=== PATIENT | male | born 1985 | race Caucasian/White ===

== ENCOUNTER 2016-12-06 16:54 | Emergency (ER) | payer OTHER ==
[~2016-12-06 16:54] MED LIST: IBUPROFEN200 M1 PO; NICOTINE T21 MG/24 H TOP; OXYCODONE/ACETA1 TA1 PO
--- NOTE | 2016-12-06 21:07 | ED ORDER SUMMARY ---
..... Patient: ANN-MARIE MUIR OrderSheet [facility] VisitID: [id number] [place] [address] 31y, M Registration Date/Time: 12/06/2016 ORDER SHEET Weight: 81.6 kg Allergies: None GENERAL ORDERS: Cervical Spine 2 or 3V Urgent (19:59 12/06/2016 Leah Patel) (Ack 20:00 TBergley) (20:24 MCampbell) MEDICATION ORDERS: Toradol IM 60 mg (NOW) (19:29 12/06/2016 Leah Patel) (19:34 DBeyalexandru R.N.) Diazepam IM 5 mg (HIGH ALERT MEDICATION, NOW) (19:29 12/06/2016 Leah Patel) (19:36 DBanjel R.N.) IV FLUIDS: ORDER SHEET NOTES: [Electronically signed by Sae Raphael R.N. (03:40 12/07/2016)] [Electronically signed by Suresh Vasquez Dr. (08:56 12/09/2016)] [Electronically locked/signed by Sae Raphael R.N. (03:40 12/07/2016)]
--- NOTE | 2016-12-06 21:07 | ED ORDER SUMMARY ---
..... Patient: ANN-MARIE MUIR OrderSheet [facility] VisitID: [id number] [place] [address] 31y, M Registration Date/Time: 12/06/2016 ORDER SHEET Weight: 81.6 kg Allergies: None GENERAL ORDERS: Cervical Spine 2 or 3V Urgent (19:59 12/06/2016 Leah Patel) (Ack 20:00 TBergley) (20:24 MCampbell) MEDICATION ORDERS: Toradol IM 60 mg (NOW) (19:29 12/06/2016 Leah Patel) (19:34 DBeyalexandru R.N.) Diazepam IM 5 mg (HIGH ALERT MEDICATION, NOW) (19:29 12/06/2016 Leah Patel) (19:36 DBanjel R.N.) IV FLUIDS: ORDER SHEET NOTES: [Electronically signed by Sae Raphael R.N. (03:40 12/07/2016)] [Electronically signed by Suresh Vasquez Dr. (08:56 12/09/2016)] [Electronically locked/signed by Sae Raphael R.N. (03:40 12/07/2016)]
--- NOTE | 2016-12-06 21:07 | ED NURSING NOTES ---
Clinical Report - Nurses [facility] [place] [address] 12/06/2016 16:57 [id number] TRI[facility] Triage time 19:09. Acuity: LEVEL 3. Chief Complaint: NECK PAIN. 19:12 12/06/16. Alert. No acute distress. [place] COMA SCORE: [place] Coma Scale: 15- eyes open spontaneously (4); best verbal response- oriented x 4 (5); best motor response- obeys commands (6). --19:13 Rakan Driver R.N. 19:09 12/06/16. BP: 174/102. HR: 76. RR: 16. O2 saturation: 100% on room air. Temp: 98.1 F (oral). Pain level now 09/03. --19:13 Rakan Driver R.N. Weight: 81.6 kg. Height/Length: 71 inches. BMI: 25.1. --19:11 Rakan Driver R.N. Medications Ibuprofen Oral. --19:12 Rakan Driver R.N. Allergies None. --19:12 Raakn Driver R.N. Medication/allergy information source: the patient. --19:13 Rakan Driver R.N. History Primary physician (lola). ( states hx of arthritis, woke up this morning and couldn't turn neck. States he hasn't been able to see fire fighter yet). This started today. No history of recent trauma. Treatment MANUFACTURING CLERK: None. SOCIAL HX: Heavy tobacco smoker (cigarette)- less than 1 pack per day. Occasional alcohol use. No drug use. FALL RISK ASSESSMENT: Fall risk assessment completed. No fall risk identified. NUTRITIONAL RISK ASSESSMENT: The nutritional risk assessment revealed no deficiencies. FUNCTIONAL ASSESSMENT: Functional assessment: no impairments noted. LEARNING NEEDS ASSESSMENT: The learning needs assessment revealed no barriers. SKIN INTEGRITY ASSESSMENT: Skin integrity risk assessment completed. No skin integrity risk identified. --19:13 Rakan Driver R.N. PROBLEMS: Hyponatremia. Renal Insufficiency. Arthritis. --19:12 Rakan Driver R.N. ADDITIONAL SURGERIES: no known surgeries. Interventions ID band on patient. To treatment room. --19:13 Rakan Driver R.N. PHYSICAL ASSESSMENT Ambulatory to room. GENERAL / NEURO / PSYCH: Alert. Oriented X 4. Appears in no acute distress. RESPIRATORY: Respirations not labored. CVS: Capillary refill less than 2 seconds. GI / : Abdomen soft and nontender. BACK: Limited ROM of the neck. --19:13 Rakan Driver R.N. GENERAL / NEURO / PSYCH: Alert. Oriented X 4. Appears in no acute distress. RESPIRATORY: Respirations not labored. BACK: ( Pt reports lower back pain no c-spine tenderness). --19:41 Sae Raphael R.N. NURSING PROGRESS NOTES 19:13 12/06/16. The plan of care for this patient has been created. Head of bed elevated. Call light placed in reach. Bed placed in lowest position. Brakes of bed on. --19:13 Rakan Driver R.N. 19:34 12/06/2016 Toradol (Ketorolac Tromethamine) IM 60 mg given. Given in the right anterior lateral thigh. --19:34 Sae Raphael R.N. 19:36 12/06/2016 Diazepam (Diazepam) IM 5 mg given. Given in the left anterior lateral thigh. Allergies verified, confirmed 5 rights and sedative warning given to the patient. --19:36 Sae Raphael R.N. ( Pt reports relief with medication, states he has an improved range of motion). --21:05 Sae Raphael R.N. DISPOSITION / DISCHARGE Departure time: 2112. No learning barriers present. Discharge instructions provided and reviewed with the patient. Reviewed medication(s) side effects information. Prescription(s) given to the patient. Patient verbalized understanding. Written instructions provided in Thai. The patient was discharged by the physician. He was discharged home. ( Pt ambulated on discharge steady on his feet verbalized understanding of discharge instructions and follow up care.). --21:16 Sae Raphael R.N. 21:15 12/06/16. BP: 175/100. HR: 76. RR: 18. O2 saturation: 100%. Pain level now 03/04. --21:16 Sae Raphael R.N. Locked/Released at 12/07/2016 3:40 by Sae Raphael R.N.
--- NOTE | 2016-12-06 21:07 | ED CLINICAL REPORT ---
Clinical Report - Physicians/Mid Levels [facility] [address] [place] [address] 12/06/2016 16:57 Patient: ANN-MARIE MUIR Time Seen: 19:18; initial patient contact. Arrived- By private vehicle. Historian- patient. HISTORY OF PRESENT ILLNESS Chief Complaint: NECK PAIN. Modifying factors- worsened by rotation of the head or neck flexion. Not relieved by anything. Onset- about 2 days ago; Awaiting Rheum referral, father has Ankylosing Spondylitis and it is still present. It is described as being moderate in degree. It is described as being in the area of the left trapezius, left side of the cervical spine, cervical spine, right side of the cervical spine and right trapezius. The quality is noted to be "pain" and similar to prior episodes. No radiation. No bladder dysfunction, bowel dysfunction, sensory loss or motor loss. Patient denies an injury but injury to the head or chest. Similar symptoms previously: Several times. Recent medical care: Not recently seen/assessed. REVIEW OF SYSTEMS No fever, chills, skin rash, nausea or vomiting. He has had a headache. All systems otherwise negative, except as recorded above. PAST HISTORY Hyponatremia. Renal Insufficiency. Arthritis. SOCIAL HISTORY Current every day smoker. Occasional alcohol use. No drug use. ADDITIONAL NOTES The nursing notes have been reviewed with agreement regarding the chief complaint, PMH and patient medications and allergies. PHYSICAL EXAM Appearance: Alert. Appears to be in pain. Eyes: Pupils equal, round and reactive to light. ENT: Pharynx normal. Neck: Pain in the entire posterior neck upon turning the head to the right, turning the head to the left, lifting the head, flexing the neck and extending the neck. Moderate muscle spasm of the right and left posterior neck. No vertebral tenderness. Mild soft tissue tenderness in the right upper, mid and lower neck area and left upper, mid and lower neck area. No lymphadenopathy or meningeal signs. CVS: Normal heart rate and rhythm. Heart sounds normal. Respiratory: No respiratory distress. Breath sounds normal. Skin: Normal skin color. No rash. Neuro: Oriented X 3. Mood/affect normal. No motor deficit. No sensory deficit. Reflex exam: right triceps 2+, left triceps 2+, right brachioradialis 2+ and left brachioradialis 2+. LABS, X-RAYS, AND EKG C-Spine X-rays: Moderate straightening of the cervical spine. No fracture or subluxation. Views: 3 view C-spine series. Technique: good. The X-rays were independently viewed by me and interpreted contemporaneously by me. Prior films were not available for comparison. Interpretation time: 21:06. PROGRESS AND PROCEDURES Course of Care: 12/06/2016 21:15 BP: 175/100. HR: 76. RR: 18. O2 saturation: 100%. Vital Signs: have been reviewed. Hypertensive. Heart rate normal. Respiratory rate normal. Temperature normal. Oxygen saturation normal. Toradol 60mg IM given. Diazepam 5 mg IM given. Physical exam findings are improved. Symptoms much better. Disposition: Discharged home in good condition. Condition: good. CLINICAL IMPRESSION Acute cervical strain. INSTRUCTIONS No lifting greater than 10 lbs until released. Your Current Medications: STOP TAKING THE FOLLOWING MEDICATIONS: Ibuprofen Oral. Prescription Medications: Baclofen 20 mg: take 1 orally every 8 hours. Dispense thirty (30). No refills. Diclofenac 50 mg tablets: take 1 tablet orally every 8 hours as needed for pain or stiffness. Dispense thirty (30). No refill. Follow-up: Follow up with your doctor if not better. Call for an appointment. Screening today revealed the patient's blood pressure to be in the hypertensive range. The patient should follow up with a primary care provider for blood pressure management. (Electronically signed by Suresh Vasquez Dr. 12/09/2016 8:56)
--- NOTE | 2016-12-06 21:07 | ED NURSING NOTES ---
Clinical Report - Nurses [facility] [place] [address] 12/06/2016 16:57 [id number] TRI[facility] Triage time 19:09. Acuity: LEVEL 3. Chief Complaint: NECK PAIN. 19:12 12/06/16. Alert. No acute distress. [place] COMA SCORE: [place] Coma Scale: 15- eyes open spontaneously (4); best verbal response- oriented x 4 (5); best motor response- obeys commands (6). --19:13 Rakan Driver R.N. 19:09 12/06/16. BP: 174/102. HR: 76. RR: 16. O2 saturation: 100% on room air. Temp: 98.1 F (oral). Pain level now 09/03. --19:13 Rakan Driver R.N. Weight: 81.6 kg. Height/Length: 71 inches. BMI: 25.1. --19:11 Rakan Driver R.N. Medications Ibuprofen Oral. --19:12 Rakan Driver R.N. Allergies None. --19:12 Rakan Driver R.N. Medication/allergy information source: the patient. --19:13 Rakan Driver R.N. History Primary physician (lola). ( states hx of arthritis, woke up this morning and couldn't turn neck. States he hasn't been able to see urgent care technician yet). This started today. No history of recent trauma. 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 SOCIAL HX: Heavy tobacco smoker (cigarette)- less than 1 pack per day. Occasional alcohol use. No drug use. FALL RISK ASSESSMENT: Fall risk assessment completed. No fall risk identified. NUTRITIONAL RISK ASSESSMENT: The nutritional risk assessment revealed no deficiencies. FUNCTIONAL ASSESSMENT: Functional assessment: no impairments noted. LEARNING NEEDS ASSESSMENT: The learning needs assessment revealed no barriers. SKIN INTEGRITY ASSESSMENT: Skin integrity risk assessment completed. No skin integrity risk identified. --19:13 Rakan Driver R.N. PROBLEMS: Hyponatremia. Renal Insufficiency. Arthritis. --19:12 Rakan Driver R.N. ADDITIONAL SURGERIES: no known surgeries. Interventions ID band on patient. To treatment room. --19:13 Rakan Driver R.N. PHYSICAL ASSESSMENT Ambulatory to room. GENERAL / NEURO / PSYCH: Alert. Oriented X 4. Appears in no acute distress. RESPIRATORY: Respirations not labored. CVS: Capillary refill less than 2 seconds. GI / : Abdomen soft and nontender. BACK: Limited ROM of the neck. --19:13 Rakan Driver R.N. GENERAL / NEURO / PSYCH: Alert. Oriented X 4. Appears in no acute distress. RESPIRATORY: Respirations not labored. BACK: ( Pt reports lower back pain no c-spine tenderness). --19:41 Sae Raphael R.N. NURSING PROGRESS NOTES 19:13 12/06/16. The plan of care for this patient has been created. Head of bed elevated. Call light placed in reach. Bed placed in lowest position. Brakes of bed on. --19:13 Rakan Driver R.N. 19:34 12/06/2016 Toradol (Ketorolac Tromethamine) IM 60 mg given. Given in the right anterior lateral thigh. --19:34 Sae Raphael R.N. 19:36 12/06/2016 Diazepam (Diazepam) IM 5 mg given. Given in the left anterior lateral thigh. Allergies verified, confirmed 5 rights and sedative warning given to the patient. --19:36 Sae Raphael R.N. ( Pt reports relief with medication, states he has an improved range of motion). --21:05 Sae Raphael R.N. DISPOSITION / DISCHARGE Departure time: 2112. No learning barriers present. Discharge instructions provided and reviewed with the patient. Reviewed medication(s) side effects information. Prescription(s) given to the patient. Patient verbalized understanding. Written instructions provided in Syriac. The patient was discharged by the physician. He was discharged home. ( Pt ambulated on discharge steady on his feet verbalized understanding of discharge instructions and follow up care.). --21:16 Sae Raphael R.N. 21:15 12/06/16. BP: 175/100. HR: 76. RR: 18. O2 saturation: 100%. Pain level now 03/04. --21:16 Sae Raphael R.N. Locked/Released at 12/07/2016 3:40 by Sae Raphael R.N.
--- NOTE | 2016-12-06 21:16 | DIAGNOSTIC IMAGING REPORT ---
PROCEDURE: XR CERVICAL SPINE 2 OR 3 VIEW INDICATION: NECK PAIN TECHNIQUE: Three views. COMPARISON: None. FINDINGS: Normal alignment without fracture. Normal disc spaces. Ankylosing spondylitis. Odontoid, lateral masses of C1 and prevertebral soft tissues are normal. IMPRESSION: 1. Ankylosing spondylitis. 2. No acute changes
--- NOTE | 2016-12-09 08:56 | ED MED RECONCILIATION SUMMARY ---
Patient: ANN-MARIE MUIR Medication Reconciliation Report [facility] VisitID: [id number] [address] [place] [address] 31y, M Registration Date/Time: 12/06/2016 Weight: 81.6 kg Height/Length: 71 in. BMI: 25.1 ALLERGIES: None The patient's Home Medications are listed below: STOP TAKING THE FOLLOWING MEDICATIONS: Ibuprofen Oral The source(s) of the original Home Medication information: patient The following Medications were given to the patient in the Emergency Department: Toradol [IM] IM 60 mg, administered: 12/06/2016 7:34:00 PM Diazepam [IM] IM 5 mg, administered: 12/06/2016 7:36:00 PM The following Medications were prescribed to the patient: Baclofen 20 mg: take 1 orally every 8 hours. Dispense thirty (30). No refills. -- Suresh Vasquez Dr. Diclofenac 50 mg tablets: take 1 tablet orally every 8 hours as needed for pain or stiffness. Dispense thirty (30). No refill. -- Suresh Vasquez Dr.
--- NOTE | 2016-12-09 08:56 | ED MED RECONCILIATION SUMMARY ---
Patient: ANN-MARIE MUIR Medication Reconciliation Report [facility] VisitID: [id number] [address] [place] [address] 31y, M Registration Date/Time: 12/06/2016 Weight: 81.6 kg Height/Length: 71 in. BMI: 25.1 ALLERGIES: None The patient's Home Medications are listed below: STOP TAKING THE FOLLOWING MEDICATIONS: Ibuprofen Oral The source(s) of the original Home Medication information: patient The following Medications were given to the patient in the Emergency Department: Toradol [IM] IM 60 mg, administered: 12/06/2016 7:34:00 PM Diazepam [IM] IM 5 mg, administered: 12/06/2016 7:36:00 PM The following Medications were prescribed to the patient: Baclofen 20 mg: take 1 orally every 8 hours. Dispense thirty (30). No refills. -- Suresh Vasquez Dr. Diclofenac 50 mg tablets: take 1 tablet orally every 8 hours as needed for pain or stiffness. Dispense thirty (30). No refill. -- Suresh Vasquez Dr.
--- NOTE | 2016-12-09 08:56 | ED MAR SUMMARY ---
..... Medication Administration Record [facility] [address] [place] [address] Patient: ANN-MARIE MUIR Visit ID: [id number] 31y, M Weight: 81.6 kg Height/Length: 71 in BMI: 25.1 ALLERGIES: None Given 19:34 12/06/2016 Sae Raphael, RJoseN. Medication Administered: TORADOL [IM] (KETOROLAC TROMETHAMINE), Dose: 60 mg IM. Medication Ordered: Toradol IM 60 mg (NOW). Given 19:36 12/06/2016 Sae Raphael, R.N. Medication Administered: DIAZEPAM [IM] (DIAZEPAM), Dose: 5 mg IM. Medication Ordered: Diazepam IM 5 mg (HIGH ALERT MEDICATION, NOW).
--- NOTE | 2016-12-09 08:56 | ED DISCHARGE INSTRUCTIONS ---
Patient: ANN-MARIE MUIR General Instructions [facility] VisitID: [id number] [place] [address] 31y, M Registration Date/Time: 12/06/2016 Acute cervical strain. INSTRUCTIONS No lifting greater than 10 lbs until released. Your Current Medications: STOP TAKING THE FOLLOWING MEDICATIONS: Ibuprofen Oral. Prescription Medications: Baclofen 20 mg: take 1 orally every 8 hours. Dispense thirty (30). No refills. Diclofenac 50 mg tablets: take 1 tablet orally every 8 hours as needed for pain or stiffness. Dispense thirty (30). No refill. Follow-up: Follow up with your doctor if not better. Call for an appointment. Screening today revealed the patient's blood pressure to be in the hypertensive range. The patient should follow up with a primary care provider for blood pressure management. ADDITIONAL INFORMATION Neck Sprain Or Strain A sudden force that causes turning or bending of the neck (such as in a car accident) can stretch or tear muscles (strain) and ligaments (sprain) and cause neck pain. Sometimes neck pain occurs after a simple awkward movement. In either case, muscle spasm is commonly present and contributes to the pain. Unless you had a forceful physical injury (for example, a car accident or fall), X-rays are usually not ordered for the initial evaluation of neck pain. If pain continues and dose not respond to medical treatment, X-rays and other tests may be performed at a later time. Home care The following guidelines will help you care for your injury at home: You may feel more soreness and spasm the first few days after the injury. Reduce your activity level until symptoms begin to improve. When lying down, use a comfortable pillow that supports the head and keeps the spine in a neutral position. The position of the head should not be tilted forward or backward. Use ice packs (ice in a plastic bag, wrapped in a towel) to treat acute pain. Apply for 20 minutes every 24 hours during the first two days. Then, begin local heat (hot shower, hot bath or heating pad) andmassageto reduce muscle spasm. Some patients feel best alternating hot and cold treatments, or just staying with one method only. Do what feels the best to you and gives the most relief. You may use acetaminophen or ibuprofen to control pain, unless another pain medicine was prescribed.If you have chronic liver or kidney disease or ever had a stomach ulcer or GI bleeding, talk with your doctor before using these medicines. Follow-up care Follow up with your physician or this facility if your symptoms do not show signs of improvement. Physical therapy may be needed. If you had X-rays today, they didnt show any broken bones, breaks, or fractures. Sometimes fractures dont show up on the first X-ray. Bruises and sprains can sometimes hurt as much as a fracture. These injuries can take time to heal completely. If your symptoms dont improve or they get worse, talk with your doctor. You may need a repeat X-ray. When to seek medical care Get prompt medical attention if any of the following occur: Pain becomes worse or spreads into your arms Weakness or numbness in one or both arms You have been given the following additional information: Neck Sprain/Strain No lifting greater than 10 lbs until released. (Electronically signed by Suresh Vasquez Dr. 12/09/2016 8:56)
--- NOTE | 2016-12-09 08:56 | ED MAR SUMMARY ---
..... Medication Administration Record [facility] [address] [place] [address] Patient: ANN-MARIE MUIR Visit ID: [id number] 31y, M Weight: 81.6 kg Height/Length: 71 in BMI: 25.1 ALLERGIES: None Given 19:34 12/06/2016 Sae Raphael, RJoseN. Medication Administered: TORADOL [IM] (KETOROLAC TROMETHAMINE), Dose: 60 mg IM. Medication Ordered: Toradol IM 60 mg (NOW). Given 19:36 12/06/2016 Sae Raphael, R.N. Medication Administered: DIAZEPAM [IM] (DIAZEPAM), Dose: 5 mg IM. Medication Ordered: Diazepam IM 5 mg (HIGH ALERT MEDICATION, NOW).
== END 2016-12-06 21:13 | disposition home or self-care (01) ==
LOC: ED SRH 16:54
DX: S16.1XXA Strain of muscle, fascia and tendon at neck level, initial encounter (principal); X58.XXXA Exposure to other specified factors, initial encounter; Y93.9 Activity, unspecified; Y92.9 Unspecified place or not applicable; Y99.9 Unspecified external cause status; F17.210 Nicotine dependence, cigarettes, uncomplicated